=== PATIENT | female | born 1985 | race Caucasian/White ===

== ENCOUNTER → 2016-07-25 | Outpatient (CLI) | payer MEDICAID ==
[~2016-07-25] MED LIST: DEPAKOTE SPRIN125 MG CHEW; DEPAKOTE SPRIN125 MG PO; FLEET ENEMA133 M1 RECTAL; KEPPRA1000 MG PO; KLONOPIN0.5 MG PO; THERA M PLUS T1 EACH PO; TRILEPTAL600 MG PO; TYLENOL650 MG RECTAL; VITAMIN B-6100 MG PO; VITAMIN C500 M1 PO
== END | disposition short-term general hospital (02) ==
LOC: CLVASC 10:36
DX: L97.529 Non-pressure chronic ulcer of other part of left foot with unspecified severity (principal)

== ENCOUNTER → 2016-10-31 | Outpatient (CLI) | payer MEDICAID | END | disposition short-term general hospital (02) | LOC: CLVASC 13:01 → CLNEUR 11-02 11:40 | DX: L89.899 Pressure ulcer of other site, unspecified stage (principal) ==

== ENCOUNTER → 2016-11-02 | Outpatient (CLI) | payer MEDICAID | END | disposition short-term general hospital (02) | LOC: CLNEUR 08:06 | DX: G40.909 Epilepsy, unspecified, not intractable, without status epilepticus (principal) ==